=== PATIENT | male | born 1950 | race Caucasian/White ===

== ENCOUNTER 2024-08-16 11:01 | Inpatient (IN) | payer MEDICARE, OTHER, SELFPAY ==
[2024-08-16] VITALS (10 sets, daily range): BP systolic 96–127; BP diastolic 49–69; PULSE 81–107; RESP 16–31; TEMP 36.8–38.2; O2SAT 94–100; BMI 33.5
--- NOTE | 2024-08-16 11:50 | RAD_ITS ---
PROCEDURE: CHEST 1 VIEW (PORTABLE) 08/16/2024 REASON FOR EXAM: FEVER TECHNIQUE: Frontal view of the chest. COMPARISON: None FINDINGS: There is mild cardiomegaly. Central vascularity appears increased. There are increased interstitial markings in the right middle lobe and left lingular segment which may be vascular. There is no pneumothorax. There is no significant effusion. Aortic calcifications are visible. Hardware is partly visible in the cervical spine. There is no visible acute bony abnormality. RAD/Chest 1 View (Portable) IMPRESSION: There is mild cardiomegaly. Central vascularity appears increased. There are increased interstitial markings in the right middle lobe and left martha gular segment which may be vascular. Reading Location: [facility]
--- NOTE | 2024-08-16 11:50 | EKG12_ITS ---
Test Reason : Blood Pressure : */* mmHG Vent. Rate : 107 BPM Atrial Rate : 107 BPM P-R Int : 174 ms QRS Dur : 140 ms QT Int : 366 ms P-R-T Axes : 16 -34 94 degrees QTcB Int : 488 ms Sinus tachycardia Left axis deviation Left bundle branch block Abnormal ECG Confirmed by Mickey Lennon ([id number]), metropolitan editor TRACIE SAENZ ([id number]) on 08/17/2024 6:52:02 AM Referred By: Nikolay Carrasquillo Confirmed By: Mickey Lennon
--- NOTE | 2024-08-16 11:51 | EX.ED.DYSGE1 ---
HPI History of Present Illness Chief Complaint: Weakness Detail of Chief Complaint: Left leg red, swollen and tender with a fever. Informant: patient Onset/Context/Timing Onset: Days Context: Gradual Onset Timing: Continuous Current Severity: Moderate Maximum Severity: Moderate Narrative Narrative: 74-year-old male history of DVT on Coumadin. States has had left lower leg pain, redness and swelling last several days developed a fever. Says he is not feeling well. Denies vomiting. Denies dysuria. Denies cough. He is not diabetic. He has never had cellulitis before that he can remember. Prior similar symptoms: No Recent Illness/Hospitalization: No [facility] Medical History Parkinson disease Hypertension Home Medications ?Medication ?Instructions ?Recorded ?Last Taken ?Type carbidopa 25 mg-levodopa 100 mg 1.5 tab PO .am,noon,dinner,hs 08/16/24 Unknown History tablet carbidopa 25 mg-levodopa 250 mg 1 tab PO .am,noon,dinner,hs 08/16/24 Unknown History tablet cholecalciferol (vitamin D3) 25 25 mcg PO DAILY 08/16/24 Unknown History mcg (1,000 unit) capsule (Vitamin D3) ezetimibe 10 mg tablet (Zetia) 10 mg PO DAILY 08/16/24 Unknown History finasteride 5 mg tablet 5 mg PO DAILY 08/16/24 Unknown History levothyroxine 25 mcg tablet 25 mcg PO DAILY 08/16/24 Unknown History metoprolol succinate 100 mg 100 mg PO DAILY 08/16/24 Unknown History tablet,extended release 24 hr mometasone 0.1 % topical solution topical 08/16/24 Unknown History niacin 500 mg tablet 500 mg PO QHS 08/16/24 Unknown History omeprazole 20 mg capsule,delayed 20 mg PO DAILY 08/16/24 Unknown History release pramipexole 1.5 mg tablet 1.5 mg PO TID 08/16/24 Unknown History rosuvastatin 10 mg tablet 10 mg PO QHS 08/16/24 Unknown History warfarin 5 mg tablet 10 mg PO .MOWEFRSU 08/16/24 Unknown History Allergy/AdvReac Type Severity Reaction Status Date / Time No Known Allergies Allergy Verified 08/16/24 11:02 Social History Smoking Status: Never smoker ROS ROS ED ROS Narrative Fever. Left lower leg redness and pain. Constitutional Constitutional ED: Reports fever(s) Eyes Eyes: Denies blurry vision ENT ENT ED: Denies ear pain Cardiovascular Cardiovascular: Denies chest pain Respiratory/Chest Respiratory/Chest: Denies cough Gastrointestinal Gastrointestinal: Denies abdominal pain, diarrhea, nausea or vomiting Genitourinary Genitourinary ED: Denies dysuria or hematuria Musculoskeletal Musculoskeletal: Denies arthralgias Integumentary Denies abscess Neurologic Neurologic: Reports weakness; Denies paresthesias Psychiatric Psychiatric: Denies anxiety Endocrine Endocrinology: Denies cold intolerance Hematologic/Lymphatic Hematologic/Lymphatic: Reports none Allergic/Immunologic Allergic/Immunologic ED: Denies mouth swelling, tongue swelling or urticaria EXAM Physical Exam Narrative Exam Narrative: 74-year-old male sitting upright in bed. Vital signs are stable he is tachycardic 170 is a temperature of 100.7. He does not look septic or toxic. Pulse ox 96% on room air no signs hypoxia. H EENT exam pupils round reactive light. Moist extremities. Neck nontender no JVD. Lungs clear to auscultation bilaterally. Heart tachycardia 105 no murmur. Chest wall ribs nontender. Abdomen soft nontender. Moving all 4 extremities. Normal pipe bowls paint trimmer strength. Normal dorsi plantarflexion. Midportion of his left calf and anterior lawler there is a band of redness consistent with cellulitis. It is warm to the touch and tender. There is no lymphangitic streaking. There is no inguinal lymphadenopathy. Neurologically he is awake alert. Answering questions following commands. Const Vital Signs: 08/16/24 11:02 08/16/24 12:06 08/16/24 12:12 Temperature 100.7 F H 100.7 F H Temperature Source Oral Oral Pulse Rate 107 H 97 Respiratory Rate 20 H 31 H Respiratory Effort Normal Non-Labored Blood Pressure 127/65 H 98/58 L Blood Pressure Mean 85 71 Pulse Ox 96 100 Oxygen Delivery Method Room Air Room Air 08/16/24 13:00 08/16/24 13:45 08/16/24 15:00 Temperature 99.8 F H 100.2 F H Temperature Source Oral Oral Pulse Rate 88 89 81 Respiratory Rate 27 H 24 H 16 Respiratory Effort Blood Pressure 96/49 L 109/60 107/58 L Blood Pressure Mean 64 76 74 Pulse Ox 95 94 97 Oxygen Delivery Method Room Air Room Air 08/16/24 15:23 Temperature 98.4 F Temperature Source Pulse Rate 83 Respiratory Rate 20 H Respiratory Effort Blood Pressure 115/57 L Blood Pressure Mean 76 Pulse Ox 99 Oxygen Delivery Method Positive well developed; Negative for cachectic, contractures or unkempt General Appearance ED: well developed; Negative for unkempt, cachectic, contractures, cyanotic, diaphoretic or pallor Nutritional Appearance: Negative for cachectic HEENT Reports moist mucous membranes Negative for trauma or tenderness Eyes PERRL and EOMs intact bilaterally Neck no lymphadenopathy, supple and no JVD Chest Wall inspection of chest normal and palpation of chest normal Resp normal respiratory effort and clear to auscultation bilaterally Cardio regular rhythm, S1 normal heart sound, S2 normal heart sound and no murmurs; Negative for regular rate Rate: tachycardic GI normal to inspection, nondistended, normoactive bowel sounds, non-tender, non-distended and no masses Auscultation: normoactive bowel sounds Palpation: soft; Negative for tender, guarding or rebound tenderness present Back/Spine no CVA tenderness General Back: Negative for CVA tenderness Cervical Spine: Negative for cervical spine tenderness Thoracic Spine / Upper Back: Negative for thoracic spinal tenderness or paraspinal muscle tenderness Lumbar Spine / Lower Back: Negative for lumbar spinal tenderness Extremity Negative for normal to inspection Extremity Narrative: Left lower leg mid portion redness band around the leg about 6 inches in width. Goes from the anterior lawler behind the calf. Warm to touch. Consistent with cellulitis. No crepitus. No sloughing of skin. No vesicles. No pustules. There is no lymphangitic streaking. There is no inguinal lymphadenopathy. The left hip, knee and ankle are nontender nonswollen. Do not read. He do not appear to be septic. He can do flexion extension of the left leg. General Extremety ED: Yes edema and tenderness General Extremity: edema Neuro oriented x3 and CN's II-XII intact bilaterally Sensorium / Orientation: alert; Negative for orientation impaired, lethargic or stuporous Motor Exam: strength 5/5 throughout Psych mental status grossly normal Appearance: Negative for unkempt Attitude: No agitated Mood & Affect: Negative for depressed, anxious or tearful Skin No no rashes or lesions noted, no wounds and skin turgor normal Skin Narrative: Left lower extremity cellulitis. Tender and red to the touch. No lymphangitic streaking. No inguinal lymphadenopathy. No joint involvement. General Skin Exam: Negative for jaundice or pallor Lesions: No lesion noted Rashes: No rashes noted Trauma: Negative for abrasion Wounds: Negative for wounds noted MDM MDM MDM Narrative Medical decision making narrative: 74-year-old male left lower extremity cellulitis. Screening labs. I will do a lactic acid plan clinically I do not think he is septic at this time. He will be placed in sepsis protocol due to his tachycardia, fever and site of infection. He will be started on IV Zosyn. He will need to be admitted. Repeat exam patient is doing well around 3:15 PM. I discussed both he and his family. I spoke with the hospitalist about MedSurg admission. Patient and family are comfortable plan. History & Record Review Discussion w/independent historian: Patient Additional record(s) reviewed:: Prior inpatient record, Prior outpatient record, Prior ED visit and Prior labs Lab Data Attestation: I reviewed the patient's lab results. Lab results narrative: CBC shows a white count of 23.5. H&H 14 and 44. Platelets 156. 91% neutrophils. PT/INR of 29 and 2.7. He is on warfarin. BMP shows a sodium of 138. Gap 12. BUN is 16 creatinine 1.2. Glucose 112. Lactic acid is 1.9. Liver enzymes are normal. Urinalysis shows no white or red cells. No bacteria or nitrates. Labs: Laboratory Results - last 24 hr 08/16/24 08/16/24 12:13 12:25 WBC 23.5 H RBC 4.99 Hgb 14.8 Hct 44.6 MCV 89.4 MCH 29.7 MCHC 33.2 RDW Std Deviation 48.0 H RDW Coeff of Jarrett 14.7 H Plt Count 156 MPV 12.3 H Immature Gran % (Auto) 1.100 H Neut % (Auto) 91.1 H Lymph % (Auto) 3.1 L [place] % (Auto) 4.5 Eos % (Auto) 0.0 Baso % (Auto) 0.2 Absolute Neuts (auto) 21.4 H Absolute Lymphs (auto) 0.73 L Nucleated RBC % 0 Platelet Estimate A RBC Morphology NORM C+C Polychromasia 1+ PT 29.5 H INR 2.7 APTT 50.6 H Sodium 138 Potassium 4.2 Chloride 101 Carbon Dioxide 25.4 Anion Gap 12 BUN 16 Creatinine 1.21 H Estim Creat Clear Calc 74.21 Est GFR (MDRD) Non-Af 62 BUN/Creatinine Ratio 13.2 Glucose 112 H Lactic Acid 1.9 Calcium 9.2 Total Bilirubin 0.74 AST 33 ALT 36 Alkaline Phosphatase 74 Total Protein 7.2 Albumin 4.1 Globulin 3.1 Albumin/Globulin Ratio 1.3 Urine Color Yellow Urine Clarity Clear Urine pH 8.0 Ur Specific [place] 1.010 Urine Protein 30 H Urine Glucose (UA) Normal Urine Ketones Negative Urine Occult Blood 50 H Urine Nitrite Negative Urine Bilirubin Negative Urine Urobilinogen Normal Ur Leukocyte Esterase Negative Urine RBC 0-5 SEEN Urine WBC 0-5 SEEN Ur Squamous Epith Cells 0 SEEN Urine Bacteria 0 SEEN Urine Mucus 0 SEEN Radiography Chest X-Ray - ED: Read by ED Physician, Read by Radiologist, Normal, Heart, Lungs, Mediastinum, Bony Structures, No Acute Disease and Chronic Changes Diagnostic Testing: Clinical Impression(s) from Imaging Studies Chest X-Ray 08/16/24 11:50 IMPRESSION: There is mild cardiomegaly. Central vascularity appears increased. There are increased interstitial markings in the right middle lobe and left lingular segment which may be vascular. Reading Location: [facility] Chest x-ray, portable, single view interpreted by myself and the radiologist. She has no acute process. Normal cardiac silhouette. Chronic changes. No pneumonia. No effusions. Rhythm Strip Rhythm Strip: Sinus Tach Rate: 107 Ectopy: None EKG Initial EKG: Attestation: I personally reviewed and interpreted this EKG as follows: Interpretation: No Acute Injury Pattern, Sinus Tachycardia and LBBB Comments: Sinus tachycardia rate of 107. Left bundle branch block. No acute signs of CT or ischemia. Discharge Plan Dx/Rx/DC Orders Clinical Impression: Cellulitis of left leg, Fever, Leukocytosis, Chronic anticoagulation, History of deep vein thrombosis Disposition Disposition: Acute Care [facility]
[2024-08-16] MEDS: 0.9% Normal Saline (1000mL) 1,000 ML 999 ML IV (12:14)
[2024-08-16] MEDS: Ondansetron 4 MG/2 ML Vial IV (12:14)
[2024-08-16] MEDS: Morphine 4 MG/ML Syringe IV (12:15)
[2024-08-16] MEDS: Acetaminophen 500 MG Tablet 1000 MG PO (12:18)
[2024-08-16 12:33] LABS: Bacteria 0 SEEN /hpf (None Seen); Mucous, Urine 0 SEEN /hpf (<or=2+); Squamous Epithelial Cells - UA 0 SEEN /hpf (0-5)
[2024-08-16 12:38] LABS: Absolute Lymphocyte Count 0.73 X10^3/uL (0.83-4.51); Absolute Neutrophil Count 21.4 X10^3/uL (2.0-7.7); Basophil# 0.04 X10^3/uL; Basophil% 0.2 % (0-1); Hematocrit 44.6 % (40-54); Hemoglobin 14.8 g/dL (13.0-16.5); Lymphocyte # 0.73 X10^3/ul (0.83-4.51); Lymphocyte % 3.1 % (19-41); Mean Corp Hgb Conc 33.2 g/dL (32-36); Mean Corpuscular Hgb 29.7 pg (27.0-32.0); Mean Corpuscular Volume 89.4 fL (80-94); Mean Platelet Vol. 12.3 fl (6.2-12.0); Monocyte# 1.06 X10^3/uL; Monocyte% 4.5 % (0-10); NRBC Flagged by Analyzer 0 % (0-5); Neutrophil # 21.38 X10^3/uL (2.7-7.7); Neutrophil % 91.1 % (47-70); POSITIVE DIFFERENTIAL YES; Platelet Count 156 K/mm3 (150-450); RBC Distribution Width CV 14.7 % (11.6-14.6); Red Blood Count 4.99 M/mm3 (4.6-6.2); White Blood Count 23.5 K/mm3 (4.4-11.0)
[2024-08-16 12:39] LABS: Differential Indicated SCAN CRITERIA MET
[2024-08-16 12:46] LABS: Color, Urine Yellow (Yellow); Glucose, Dipstick Normal (Normal); Ketone-Dipstick Negative (Negative); Leukocyte Esterase-Dipstick Negative /ul (Negative); Nitrite-Dipstick Negative (Negative); Occult Blood-Urine 50 /ul (Negative); Protein-Dipstick 30 mg/dl (Negative); Urine Bilirubin Dipstick Negative (Negative); Urine Clarity Clear (Clear); Urine Urobilinogen Normal (Normal)
[2024-08-16 12:49] LABS: International Normalized Ratio 2.7; Partial Thromboplast Time 50.6 Seconds (24.1-36.2); Prothrombin Time (Protime)PT. 29.5 SECONDS (11.7-14.9)
[2024-08-16 12:56] LABS: Red Blood Cells-Urine 0-5 SEEN /hpf (0-5); White Blood Cells 0-5 SEEN /hpf (0-5)
[2024-08-16 12:58] LABS: Lactic Acid 1.9 mmol/L (0.0-2.0)
[2024-08-16 13:07] LABS: ALB/GLOB Ratio 1.3 RATIO (0.9-2.4); AST(SGOT) 33 U/L (<=37); Alanine Aminotransfer ALT/SGPT 36 U/L (<=46); Albumin, Serum 4.1 g/dL (3.4-4.8); Alkaline Phosphatase 74 U/L (40-129); Anion Gap 12 (5-15); BUN 16 mg/dL (4-19); BUN/Creat Ratio 13.2 RATIO (10-20); Calcium,Total 9.2 mg/dL (7.6-11.0); Carbon Dioxide 25.4 mmol/L (21.0-32.0); Chloride 101 mmol/L (98-108); Creatinine, Serum 1.21 mg/dL (0.70-1.20); EST Glomerular Filtration Rate 62 (>60); Estimated Creatinine Clearance 74.21 ml/min (50-250); Globulin 3.1 g/dL (2.2-4.2); Glucose 112 mg/dL (70-99); Potassium 4.2 mmol/L (3.3-5.1); Protein, Total 7.2 g/dL (5.9-8.4); Sodium Level 138 mmol/L (133-145); Total Bilirubin 0.74 mg/dL (0.00-1.30)
[2024-08-16 13:39] LABS: Platelet Estimate A (ADEQ); Polychromasia 1+; Red Cell Morphology NORM C+C NORMAL (NORM C&C)
[2024-08-16] MEDS: Piperacil/Tazobactam 4.5 GM in 0.9% Normal Saline (100mL MB+) 100 ML IV (13:43)
--- NOTE | 2024-08-16 15:08 | HP.PCM.HOS_ITS ---
[facility] - General General Date of Admission: 08/16/24 Date of Service: 08/16/24 Chief Complaint: Worsening left leg pain with swelling HPI Narrative JAMES GRACE, is a 74 M who presented to [facility] ED on 08/16/2024 with worsening left leg pain with swelling. Medical history significant for Parkinson's disease, prior DVT on Coumadin, hypertension, hyperlipidemia and hypothyroidism. Patient lives at home with his and has fairly good functional status at baseline. He noticed left lower extremity swelling with redness and pain starting 4 to 5 days ago. It has progressively worsened over that timeframe so he came in for further evaluation today. No prior history of cellulitis. He does report some fevers and chills and generally states he does not feel well. Has not had much of an appetite. In the ED his left lower extremity was most consistent with cellulitis on exam and he was noted to be febrile to 100.7 F with WBC count 23,000. INR was therapeutic at 2.7 so low concern for DVT. Given these findings, he was started on IV antibiotics and given a 1 L fluid bolus as well as Tylenol for the pain and hospitalist was contacted for admission. I saw the patient at bedside in the ED, and daughter were present. Patient was mildly fatigued appearing but otherwise sitting back comfortably in bed, conversing normally and in no acute distress. He noted that he was feeling mildly improved after the fluid bolus and Tylenol. He currently denied any fevers or chills but generally felt fatigue and malaise. No other acute concerns at this time. [facility], [facility] Medical History Parkinson disease Hypertension Home Medications ?Medication ?Instructions ?Recorded ?Last Taken ?Type ascorbic acid (vitamin C) 1,000 mg 1,000 mg PO DAILY s upplement 08/16/24 Unknown History tablet (Vitamin C) calcium carbonate 1,200 mg PO DAILY Supplement 08/16/24 Unknown History carbidopa 25 mg-levodopa 100 mg 1.5 tab PO .am,noon,di nner,hs 08/16/24 Unknown History tablet carbidopa 25 mg-levodopa 250 mg 1 tab PO .am,noon,dinn er,hs 08/16/24 Unknown History tablet cholecalciferol (vitamin D3) 25 25 mcg PO DAILY Unknown History mcg (1,000 unit) capsule (Vitamin D3) ezetimibe 10 mg tablet (Zetia) 10 mg PO DAILY 08/16/24 Unknown History finasteride 5 mg tablet 5 mg PO DAILY 08/16/24 Unkno wn History levothyroxine 25 mcg tablet 25 mcg PO DAILY 08/16/24 U nknown History metoprolol succinate 100 mg 100 mg PO DAILY 08/16/24 U nknown History tablet,extended release 24 hr niacin 500 mg tablet 500 mg PO QHS 08/16/24 Unkno wn History omeprazole 20 mg capsule,delayed 20 mg PO DAILY Unknown History release pramipexole 1.5 mg tablet 1.5 mg PO TID 08/16/24 Unkno wn History rosuvastatin 10 mg tablet 10 mg PO QHS 08/16/24 Unknow n History warfarin 5 mg tablet 10 mg PO .MOWEFRSU 08/16/24 Unknown History Allergy/AdvReac Type Severity Reaction Status Date / Time No Known Allergies Allergy Verified 08/16/24 11:02 Social History Smoking Status: Never smoker ROS Constitutional Constitutional: Reports chills, fatigue, fever(s) and malaise; Denies weakness Eyes Eyes: Denies change in vision Cardiovascular Cardiovascular: Denies chest pain Respiratory/Chest Respiratory/Chest: Denies shortness of breath at rest Gastrointestinal Gastrointestinal: Denies abdominal pain Musculoskeletal Musculoskeletal: Reports other Details: Leg pain with swelling Neurologic Neurologic: Denies dizziness, focal weakness or headache(s) Vital Signs Vital Signs Vital Signs: 08/16/24 11:02 08/16/24 12:06 08/16/24 12:12 Temperature 100.7 F H 100.7 F H Temperature Source Oral Oral Pulse Rate 107 H 97 Respiratory Rate 20 H 31 H Respiratory Effort Normal Non-Labored Blood Pressure 127/65 H 98/58 L Blood Pressure Mean 85 71 Pulse Ox 96 100 Oxygen Delivery Method Room Air Room Air 08/16/24 13:00 08/16/24 13:45 Temperature 99.8 F H 100.2 F H Temperature Source Oral Oral Pulse Rate 88 89 Respiratory Rate 27 H 24 H Respiratory Effort Blood Pressure 96/49 L 109/60 Blood Pressure Mean 64 76 Pulse Ox 95 94 Oxygen Delivery Method Room Air Room Air Weight Weight: 121.9 kg Body Mass Index (BMI) 33.5 Physical Exam Const alert, oriented x3 and no apparent distress Constitutional Narrative: Elderly male, class I obesity, fatigued appearing but otherwise sitting back comfortably in bed, conversing normally, in no acute distress. General Appearance: cooperative and comfortable HEENT normocephalic, head/scalp atraumatic, hearing grossly normal bilaterally, nasal mucous membranes and turbinates normal and moist oral mucous membranes Eyes PERRL, EOMs intact bilaterally and conjunctivae normal Neck full ROM Chest inspection of chest normal Resp normal respiratory effort, normal air movement, no use of accessory muscles and clear to auscultation bilaterally Cardio regular rate, regular rhythm, no murmurs and peripheral pulses 2+ throughout GI normal to inspection, nondistended, normoactive bowel sounds, soft to palpation, non-tender and non-distended Back/Spine normal ROM Extremity Extremity Narrative: Midportion of left lower leg with redness and band like distribution around leg about 6 inches in width. Warmth and tender to the touch. No crepitus, skin sloughing, vesicles, pustules noted. Neuro moves all extremities and no focal motor deficits Speech: speech normal Motor Exam: strength 5/5 throughout Psych mental status grossly normal Results Lab / Micro Data 08/17/24 05:15 08/17/24 05:15 Labs: Laboratory Results - last 24 hr 08/16/24 12:13: Lactic Acid 1.9 08/16/24 12:25: WBC 23.5 H, RBC 4.99, Hgb 14.8, Hct 44.6, MCV 89.4, MCH 29.7, MCHC 33.2, RDW Std Deviation 48.0 H, RDW Coeff of Jarrett 14.7 H, Plt Count 156, MPV 12.3 H, Immature Gran % (Auto) 1.100 H, Neut % (Auto) 91.1 H, Lymph % (Auto) 3.1 L, [place] % (Auto) 4.5, Eos % (Auto) 0.0, Baso % (Auto) 0.2, Absolute Neuts (auto) 21.4 H, Absolute Lymphs (auto) 0.73 L, Nucleated RBC % 0, Platelet Estimate A, RBC Morphology NORM C+C, Polychromasia 1+, PT 29.5 H, INR 2.7, APTT 50.6 H, Sodium 138, Potassium 4.2, Chloride 101, Carbon Dioxide 25.4, Anion Gap 12, BUN 16, Creatinine 1.21 H, Estim Creat Clear Calc 74.21, Est GFR (MDRD) Non-Af 62, BUN/Creatinine Ratio 13.2, Glucose 112 H, Calcium 9.2, Total Bilirubin 0.74, AST 33, ALT 36, Alkaline Phosphatase 74, Total Protein 7.2, Albumin 4.1, Globulin 3.1, Albumin/Globulin Ratio 1.3, Urine Color Yellow, Urine Clarity Clear, Urine pH 8.0, Ur Specific [place] 1.010, Urine Protein 30 H, Urine Glucose (UA) Normal, Urine Ketones Negative, Urine Occult Blood 50 H, Urine Nitrite Negative, Urine Bilirubin Negative, Urine Urobilinogen Normal, Ur Leukocyte Esterase Negative, Urine RBC 0-5 SEEN, Urine WBC 0-5 SEEN, Ur Squamous Epith Cells 0 SEEN, Urine Bacteria 0 SEEN, Urine Mucus 0 SEEN Rhythm Strip Rhythm Strip: Sinus Tach Rate: 107 Ectopy: None Imaging Radiology Impression Chest X-Ray 08/16/24 11:50 IMPRESSION: There is mild cardiomegaly. Central vascularity appears increased. There are increased interstitial markings in the right middle lobe and left lingular segment which may be vascular. Reading Location: [facility] Assessment & Plan Assessment/Plan (1) Cellulitis of left leg: PLAN: Plan Patient is a 74-year-old male who presented [facility] ED on 08/16/2024 with worsening left lower leg pain with swelling and fevers. 1. Left lower extremity cellulitis ? Admit under inpatient status to [facility]. Presentation consistent with left lower extremity cellulitis given exam findings, fevers and elevated WBC count. Will treat with IV vancomycin and Zosyn for now. Monitor closely. 2. History of DVT on Coumadin ? INR 2.7 on admit, in therapeutic range. Continue home Coumadin. Chronic medical conditions: ? Class I obesity: BMI 33 on admit. Complicates hospital course, care and prognosis. ? Parkinson's disease: Stable. Continue home Sinemet and prophylax all. ? Hypertension: Continue home Toprol. ? Hyperlipidemia: Continue home statin, niacin and Zetia. ? BPH with obstructive symptoms: Continue home finasteride. ? GERD: Continue home PPI. DVT prophylaxis: Not indicated, on Coumadin CODE STATUS: Full code, verified Expected disposition: Home, 2 to 3 days Total clinical time spent by myself addressing the patient's medical issues, reviewing all the data, and collaborating with patient's care team: 55 minutes. Charges/Coding Visit Charges Inpatient E&M: 85090 Init Hosp L2
--- NOTE | 2024-08-16 16:10 | CASEMGMT ---
Care Management Face to Face with patient for initial transition planning/care coordination assessment in the ED.? This consumer loan underwriter introduced self and role at [facility]. Patient alert and oriented. Patient willing to participate in assessment and is able to answer all questions appropriately.? Care providers, pharmacy, and demographics verified. Admitting Diagnosis: Cellulitis Other diagnosis history: ?Parkinson disease, Hypertension PCP: ?Susana Specialists: ?Nikolai Hurt Preferred Pharmacy: ?[facility] Insurance: ?Medicare Prescription Benefit: yes Living Will/HPOA: ?Reports completed, niece is listed as HPOA LNOK: Living Arrangements: ?patient and live in a mobile home, patient reports to being independent with ADLs up until today. Transportation: ?niece drives patient when needed DME: ?walker, wheelchair, CPAP HHC: ?[facility] - recently discharged patient SNF/Rehab: ?none Community Resources: ?[facility] Behavioral Health History: ?none Patient goals: Patient discharge plans uncertain. Patient denies any further needs or concerns at this time. Disposition Plan: admission to acute; RN CM/SW to follow for discharge planning needs that may arise. Ivet Mooney, [employer], SYSTEM ADMINISTRATOR
[2024-08-16] MEDS: Vancomycin HCl 2,000 MG in 0.9% Normal Saline (500mL Bag) 500 ML 250 MG IV (19:37)
[2024-08-16] MEDS: 0.9% Saline Lock 10 ML Syringe IV (19:42)
[2024-08-16] MEDS: 0.9% Normal Saline (250mL Bag) 250 ML 15 ML IV (19:42)
[2024-08-16] MEDS: Pramipexole Di-HCl 1 MG Tablet 1.5 MG PO (22:06)
[2024-08-16] MEDS: Carbidopa/Levodopa 25/100 Tablet PO (22:07)
[2024-08-16] MEDS: Carbidopa/Levodopa 25/250 Tablet PO (22:10)
[2024-08-16] MEDS: Atorvastatin Calcium 20 MG Tablet PO (22:10)
[2024-08-16] MEDS: Acetaminophen 325 MG Tablet 650 MG PO (22:11)
[2024-08-16] MEDS: Piperacil/Tazobactam 3.375 GM in 0.9% Normal Saline (50mL MB+) 50 ML IV (22:12)
[2024-08-16] MEDS: Niacin SA 500 MG Tablet PO (22:18)
[2024-08-17] VITALS (9 sets, daily range): BP systolic 107–115; BP diastolic 55–63; PULSE 70–79; RESP 16–18; TEMP 36.5–37.7; O2SAT 95–100
--- NOTE | 2024-08-17 02:28 | PCM.RX.CS ---
Consult Antibiotic Management Pharmacy has been consulted to manage selected antibiotic: Vancomycin Type of Intervention Type of Consult: New start Labs Labs: Sodium 138 mmol/L (133-145) 08/16/24 12:25 Potassium 4.2 mmol/L (3.3-5.1) 08/16/24 12:25 Chloride 101 mmol/L (98-108) 08/16/24 12:25 Carbon Dioxide 25.4 mmol/L (21.0-32.0) 08/16/24 12:25 Anion Gap 12 (5-15) 08/16/24 12:25 BUN 16 mg/dL (4-19) 08/16/24 12:25 Creatinine 1.21 mg/dL (0.70-1.20) H 08/16/24 12:25 Est GFR (MDRD) Non-Af 62 (>60) 08/16/24 12:25 BUN/Creatinine Ratio 13.2 RATIO (10-20) 08/16/24 12:25 Glucose 112 mg/dL (70-99) H 08/16/24 12:25 Dosing Weight Weight used for dosin.9 kg Estimated Creatinine Clearance Estimated Creatinine Clearance: 74 Goal Trough Goal Trough: 15-20 mcg/mL Pharmacy Plan for Drug Dosing Pharmacy Plan for Drug Dosing: Pharmacy Service will continue to monitor and adjust dosing as required. 2GM IN ER. START 1750MG Q12H AND DRAW TROUGH PRIOR TO 4TH DOSE Follow-Up Labs Follow-Up Labs: Trough: Vancomycin Date/Time Labs Ordered Labs to be done on [date and time ordered]: 08/18 @ 0700
[2024-08-17] MEDS: Acetaminophen 325 MG Tablet 650 MG PO ×2 (06:12→14:14)
[2024-08-17] MEDS: Piperacil/Tazobactam 3.375 GM in 0.9% Normal Saline (50mL MB+) 50 ML IV ×3 (06:12→21:16)
[2024-08-17] MEDS: Levothyroxine 25 MCG TABLET PO (06:14)
[2024-08-17 06:15] LABS: Hematocrit 42.1 % (40-54); Hemoglobin 13.7 g/dL (13.0-16.5); Mean Corp Hgb Conc 32.5 g/dL (32-36); Mean Corpuscular Hgb 29.7 pg (27.0-32.0); Mean Corpuscular Volume 91.3 fL (80-94); Mean Platelet Vol. 12.7 fl (6.2-12.0); Platelet Count 125 K/mm3 (150-450); RBC Distribution Width CV 15.1 % (11.6-14.6); RBC Distribution Width SD 50.1 fl (35.1-43.9); Red Blood Count 4.61 M/mm3 (4.6-6.2); White Blood Count 14.9 K/mm3 (4.4-11.0)
[2024-08-17 06:53] LABS: Anion Gap 11 (5-15); BUN 16 mg/dL (4-19); BUN/Creat Ratio 13.3 RATIO (10-20); Calcium,Total 8.3 mg/dL (7.6-11.0); Carbon Dioxide 24.4 mmol/L (21.0-32.0); Chloride 103 mmol/L (98-108); Creatinine, Serum 1.21 mg/dL (0.70-1.20); EST Glomerular Filtration Rate 62 (>60); Estimated Creatinine Clearance 74.21 ml/min (50-250); Glucose 102 mg/dL (70-99); Potassium 3.9 mmol/L (3.3-5.1); Sodium Level 138 mmol/L (133-145)
[2024-08-17] MEDS: Vancomycin HCl 1,750 MG in 0.9% Normal Saline (500mL Bag) 500 ML 250 MG IV ×2 (08:08→19:28)
[2024-08-17] MEDS: 0.9% Saline Lock 10 ML Syringe IV ×3 (08:14→20:54)
[2024-08-17] MEDS: Metoprolol(XL)Succ 100 MG Tablet PO (08:47)
[2024-08-17] MEDS: Cholecalciferol (VIT D3) 25 MCG TABLET (1,000 UNITS) PO (08:47)
[2024-08-17] MEDS: Carbidopa/Levodopa 25/250 Tablet PO ×4 (08:47→21:09)
[2024-08-17] MEDS: Ascorbic Acid 500 MG Tablet 1000 MG PO (08:47)
[2024-08-17] MEDS: Ezetimibe 10 MG Tablet PO (08:48)
[2024-08-17] MEDS: Finasteride 5 MG Tablet PO (08:48)
[2024-08-17] MEDS: Pramipexole Di-HCl 1 MG Tablet 1.5 MG PO ×3 (08:48→21:09)
[2024-08-17] MEDS: Carbidopa/Levodopa 25/100 Tablet PO ×4 (08:48→21:08)
[2024-08-17] MEDS: Pantoprazole Sodium 20 MG Tablet PO (08:49)
[2024-08-17] MEDS: Menthol/Lanolin/Calamine/Znox 113 GM Tube 1 APPLIC TOPICAL ×2 (08:49→21:10)
--- NOTE | 2024-08-17 08:54 | EX.EMERGENCY ---
EMERGENCY DOCUMENTATION INITIATED: Date: 08/17/24 Time: 7a-7p Day shift
--- NOTE | 2024-08-17 11:11 | PN.HOSP_ITS ---
Reason for Visit Reason for Visit: Diagnoses Cellulitis of left lower limb (08/16/24) Subjective Subjective Saw patient at bedside this morning. Patient was sitting back comfortably in bedside chair and in no acute distress. His left leg looks moderately improved this morning and patient states that he does feel improved today. Has improved energy level and denies any fevers or chills since last night. Denies any left leg pain currently. No other acute concerns at this time. Objective Data Objective Data Vital Signs: Vital Signs Temp Pulse Resp BP Pulse Ox O2 Del Method 98.4 F 79 18 107/58 L 98 Room Air 08/17/24 08:05 08/17/24 08:47 08/17/24 08:05 08/17/24 08:05 08/17/24 08:05 08/17/24 03:42 Oxygen Delivery Method Room Air Weight: 121.9 kg Body Mass Index (BMI) 33.5 Intake & Output: Intake and Output for Last 24 Hours 08/15/24 08/16/24 08/17/24 23:59 23:59 23:59 Intake Total 1640 / 1640 346 / 346 Output Total 400 / 800 850 / 850 Balance 1240 / 840 -504 / -504 Lab / Micro Data 08/17/24 05:15 08/17/24 05:15 Labs: Laboratory Results - last 24 hr 08/16/24 12:13: Lactic Acid 1.9 08/16/24 12:25: WBC 23.5 H, RBC 4.99, Hgb 14.8, Hct 44.6, MCV 89.4, MCH 29.7, MCHC 33.2, RDW Std Deviation 48.0 H, RDW Coeff of Jarrett 14.7 H, Plt Count 156, MPV 12.3 H, Immature Gran % (Auto) 1.100 H, Neut % (Auto) 91.1 H, Lymph % (Auto) 3.1 L, Mccracken % (Auto) 4.5, Eos % (Auto) 0.0, Baso % (Auto) 0.2, Absolute Neuts (auto) 21.4 H, Absolute Lymphs (auto) 0.73 L, Nucleated RBC % 0, Platelet Estimate A, RBC Morphology NORM C+C, Polychromasia 1+, PT 29.5 H, INR 2.7, APTT 50.6 H, Sodium 138, Potassium 4.2, Chloride 101, Carbon Dioxide 25.4, Anion Gap 12, BUN 16, Creatinine 1.21 H, Estim Creat Clear Calc 74.21, Est GFR (MDRD) Non-Af 62, BUN/Creatinine Ratio 13.2, Glucose 112 H, Calcium 9.2, Total Bilirubin 0.74, AST 33, ALT 36, Alkaline Phosphatase 74, Total Protein 7.2, Albumin 4.1, Globulin 3.1, Albumin/Globulin Ratio 1.3, Urine Color Yellow, Urine Clarity Clear, Urine pH 8.0, Ur Specific [place] 1.010, Urine Protein 30 H, Urine Glucose (UA) Normal, Urine Ketones Negative, Urine Occult Blood 50 H, Urine Nitrite Negative, Urine Bilirubin Negative, Urine Urobilinogen Normal, Ur Leukocyte Esterase Negative, Urine RBC 0-5 SEEN, Urine WBC 0-5 SEEN, Ur Squamous Epith Cells 0 SEEN, Urine Bacteria 0 SEEN, Urine Mucus 0 SEEN 08/17/24 05:15: WBC 14.9 H, RBC 4.61, Hgb 13.7, Hct 42.1, MCV 91.3, MCH 29.7, MCHC 32.5, RDW Std Deviation 50.1 H, RDW Coeff of Jarrett 15.1 H, Plt Count 125 L, M PV 12.7 H, Sodium 138, Potassium 3.9, Chloride 103, Carbon Dioxide 24.4, Anion Gap 11, BUN 16, Creatinine 1.21 H, Estim Creat Clear Calc 74.21, Est GFR (MDRD) Non-Af 62, BUN/Creatinine Ratio 13.3, Glucose 102 H, Calcium 8.3 Radiography Diagnostic Testing: Radiology Impression Chest X-Ray 08/16/24 11:50 IMPRESSION: There is mild cardiomegaly. Central vascularity appears increased. There are increased interstitial markings in the right middle lobe and left lingular segment which may be vascular. Reading Location: [facility] Rhythm Strip Rhythm Strip: Sinus Tach Rate: 107 Ectopy: None Physical Exam Const alert, oriented x3 and no apparent distress Constitutional Narrative: Elderly male, class I obesity, mildly fatigued appearing but otherwise sitting back comfortably in bed, conversing normally, in no acute distress. Improving. General Appearance: cooperative and comfortable HEENT normocephalic, head/scalp atraumatic, hearing grossly normal bilaterally, nasal mucous membranes and turbinates normal and moist oral mucous membranes Eyes PERRL, EOMs intact bilaterally and conjunctivae normal Neck full ROM Chest inspection of chest normal Resp normal respiratory effort, normal air movement, no use of accessory muscles and clear to auscultation bilaterally Cardio regular rate, regular rhythm, no murmurs and peripheral pulses 2+ throughout GI normal to inspection, nondistended, normoactive bowel sounds, soft to palpation, non-tender and non-distended Back/Spine normal ROM Extremity Extremity Narrative: Midportion of left leg with moderate improvement in erythema. Remains warm but is less tender to the touch. No crepitus, skin sloughing, vesicles, pustules noted. Neuro moves all extremities and no focal motor deficits Speech: speech normal Motor Exam: strength 5/5 throughout Psych mental status grossly normal Assessment & Plan Assessment/Plan (1) Cellulitis of left leg: PLAN: Plan Patient is a 74-year-old male who presented [facility] ED on 08/16/2024 with worsening left lower leg pain with swelling and fevers. 1. Left lower extremity cellulitis ? Presentation consistent with left lower extremity cellulitis given exam findings, fevers and elevated WBC count. Treating with IV vancomycin and Zosyn and patient with moderate improvement on hospital day 2 with improving WBC count and fevers resolved. Continue IV antibiotics today and if continuing to improve tomorrow, will plan for discharge home on p.o. antibiotics to complete 7-day course total. 2. History of DVT on Coumadin ? INR 2.7 on admit, in therapeutic range. Continue home Coumadin. Chronic medical conditions: ? Class I obesity: BMI 33 on admit. Complicates hospital course, care and prognosis. ? Parkinson's disease: Stable. Continue home Sinemet and pramipexole. ? Hypertension: Continue home Toprol. ? Hyperlipidemia: Continue home statin, niacin and Zetia. ? BPH with obstructive symptoms: Continue home finasteride. ? GERD: Continue home PPI. DVT prophylaxis: Not indicated, on Coumadin CODE STATUS: Full code, verified Expected disposition: Home, 1 to 2 days Total clinical time spent by myself addressing the patient's medical issues, reviewing all the data, and collaborating with patient's care team: 35 minutes. Charges/Coding Visit Charges Inpatient E&M: 92520 Subs Hosp L2
--- NOTE | 2024-08-17 14:06 | CASEMGMT ---
Addendum entered by Sissy Soto 08/17/24 14:46: Pt reports that he is still connected with [facility] and receiving speech therapy. Pt agreeable to adding physical therapy and nursing. ELIJAH updated RNEUNICE. SHANTHI Caro Original Note: Social Work- SW met with pt to complete SDOH assessment. Pt reports no concerns at this time, but would like resources for a ramp into the home and bathroom modifications for a walk-in shower. Pt reports that he has fallen several times, as his legs just lock up and stop working due to Parkinsons. Pt reports that he has 4-5 steps into his mobile home, but does have handrails. SW discussed getting a bench shower chair to assist pt in bathroom until a walk-in shower can be completed. Pt reports that he has [facility] and receives mom's meals home delivered meals. Pt reports that he reached out to [facility], but would need to pay and does not have the ability to do so. Pt would be interested in CCN or assistance in home, as was recently diagnosed with early stage Alzheimer disease. Pt is realistic in acknowledging that both he and have progressive diseases and reporting that he would like to have a team in place before that time. SW provided information [facility], [facility], hand rail and ramp information, as well as support group information. ELIJAH collaborated with RNEUNICE to discuss approriateness for [facility]. Pt reports that Lauryn, niece, is POA. Pt encouraged to bring in documentation for scan into chart. SHANTHI Caro
[2024-08-17] MEDS: oxyCODONE 5 MG Tablet PO (14:14)
--- NOTE | 2024-08-17 14:28 | PCM.RX.CS ---
Consult Antibiotic Management Pharmacy has been consulted to manage selected antibiotic: Vancomycin Type of Intervention Type of Consult: Follow-up Suspected Infection Suspected Infection: Skin/Soft tissue Prior Doses of Antibiotics Prior Doses of Antibiotics Received/Current Regimen: 08/16/24 @ 1937 VAncomycin 2000mg x1 08/17/24 @ 0808 Vancomycin 1750mg Labs Labs: Sodium 138 mmol/L (133-145) 08/17/24 05:15 Potassium 3.9 mmol/L (3.3-5.1) 08/17/24 05:15 Chloride 103 mmol/L (98-108) 08/17/24 05:15 Carbon Dioxide 24.4 mmol/L (21.0-32.0) 08/17/24 05:15 Anion Gap 11 (5-15) 08/17/24 05:15 BUN 16 mg/dL (4-19) 08/17/24 05:15 Creatinine 1.21 mg/dL (0.70-1.20) H 08/17/24 05:15 Est GFR (MDRD) Non-Af 62 (>60) 08/17/24 05:15 BUN/Creatinine Ratio 13.3 RATIO (10-20) 08/17/24 05:15 Glucose 102 mg/dL (70-99) H 08/17/24 05:15 Dosing Weight Weight used for dosin kg Estimated Creatinine Clearance Estimated Creatinine Clearance: 74 Goal Trough Goal Trough: 15-20 mcg/mL Pharmacy Plan for Drug Dosing Pharmacy Plan for Drug Dosin of VAncomycin every 12 hours Pharmacy Service will continue to monitor and adjust dosing as required. Follow-Up Labs Follow-Up Labs: Trough: Vancomycin Date/Time Labs Ordered Labs to be done on [date and time ordered]: 08/18/24 @ 0700
--- NOTE | 2024-08-17 14:33 | CHAPLAIN ---
Type of Pastoral Visit _x__ Initial Visit ___ Follow-up Visit ___ On-call Visit ___ General Patient Visit ___ Spiritual Assessment ___ Family Conference ___ Bereavement ___ Rapid Response ___ Code Blue ___ Other (describe below) Pastoral Care Referral From _x__ Patient ___ Family ___ Nurse ___ Physician ___ Financial Consultant ___ Automation Tech ___ Other (describe below) Sacrament/Intervention _x__ Active listening ___ Anointing ___ Mandaen ___ Bereavement ___ Communion _x__ Yumiko exploration ___ _x__ Life review _x__ Prayer ___ Reconciliation ___ Sacrament of Sick _x__ Supportive presence ___ Wedding ___ Other (describe below) Pastoral Comments patient is able to give information about his health and how he is coping with it all; pt reveals that he has been dealing with Parkinson's for six years and has learned to live one day at a time and one step at a time; pt says that he would appreciate time for conversation and then a prayer; pt gives some life review, work experiences, and the of his father last week; pt accepts that he has to be in the hospital to gain improvements; pt is not connected to a yumiko community but welcomes presence and prayer; pt then asks for a visit tomorrow again if possible;
--- NOTE | 2024-08-17 14:49 | CASEMGMT ---
Addendum entered by Stacey Rich 08/17/24 15:58: JOHAN DAWSON into pt room, pt aware that [facility] will add PT and SN to his current services. Pt denies any further homegoing needs at this time. Addendum entered by Stacey Rich 08/17/24 15:19: Received confirmation from [facility] that pt is active with PT and ST. Added SN, sent H&P and order via [employer]. Original Note: notified JOHAN DAWSON that pt is active with ST services through [facility] and pt is interested in therapy and a nurse as well. Message sent to [facility] via [employer] to confirm.
[2024-08-17] MEDS: Niacin SA 500 MG Tablet PO (21:09)
[2024-08-17] MEDS: Atorvastatin Calcium 20 MG Tablet PO (21:10)
[2024-08-18] VITALS (10 sets, daily range): BP systolic 105–121; BP diastolic 53–82; PULSE 66–82; RESP 16–20; TEMP 36.1–36.6; O2SAT 96–100
--- NOTE | 2024-08-18 05:39 | CPS ---
[0507] Pt. wears BiPAP at home. He's not sure what his settings are, but I set him up with 20/10 with our sleep lab machine. Pt. says it feels very similar to what he wears at home.
[2024-08-18] MEDS: Piperacil/Tazobactam 3.375 GM in 0.9% Normal Saline (50mL MB+) 50 ML IV ×3 (06:36→21:01)
[2024-08-18] MEDS: Levothyroxine 25 MCG TABLET PO (06:36)
[2024-08-18 07:10] LABS: Hematocrit 37.4 % (40-54); Hemoglobin 12.5 g/dL (13.0-16.5); Mean Corp Hgb Conc 33.4 g/dL (32-36); Mean Corpuscular Volume 89.7 fL (80-94); Mean Platelet Vol. 12.5 fl (6.2-12.0); Platelet Count 117 K/mm3 (150-450); RBC Distribution Width CV 14.8 % (11.6-14.6); RBC Distribution Width SD 48.2 fl (35.1-43.9); Red Blood Count 4.17 M/mm3 (4.6-6.2); White Blood Count 9.5 K/mm3 (4.4-11.0)
[2024-08-18 07:56] LABS: International Normalized Ratio 1.9; Prothrombin Time (Protime)PT. 22.4 SECONDS (11.7-14.9)
[2024-08-18 08:17] LABS: Anion Gap 9 (5-15); BUN 14 mg/dL (4-19); BUN/Creat Ratio 14.3 RATIO (10-20); Calcium,Total 8.2 mg/dL (7.6-11.0); Carbon Dioxide 22.3 mmol/L (21.0-32.0); Chloride 104 mmol/L (98-108); Creatinine, Serum 0.95 mg/dL (0.70-1.20); EST Glomerular Filtration Rate 83 (>60); Estimated Creatinine Clearance 94.52 ml/min (50-250); Glucose 105 mg/dL (70-99); Potassium 3.7 mmol/L (3.3-5.1); Sodium Level 136 mmol/L (133-145); Vancomycin, Trough Level 14.9 ug/mL (5.0-15.0)
--- NOTE | 2024-08-18 08:44 | PCM.RX.CS ---
Consult Antibiotic Management Pharmacy has been consulted to manage selected antibiotic: Vancomycin Type of Intervention Type of Consult: Follow-up Suspected Infection Suspected Infection: Skin/Soft tissue Prior Doses of Antibiotics Prior Doses of Antibiotics Received/Current Regimen: Vancomycin 1750 mg Q12H, last dose given 08/17/24 @ 1928 Labs Labs: Sodium 136 mmol/L (133-145) 08/18/24 06:52 Potassium 3.7 mmol/L (3.3-5.1) 08/18/24 06:52 Chloride 104 mmol/L (98-108) 08/18/24 06:52 Carbon Dioxide 22.3 mmol/L (21.0-32.0) 08/18/24 06:52 Anion Gap 9 (5-15) 08/18/24 06:52 BUN 14 mg/dL (4-19) 08/18/24 06:52 Creatinine 0.95 mg/dL (0.70-1.20) 08/18/24 06:52 Est GFR (MDRD) Non-Af 83 (>60) 08/18/24 06:52 BUN/Creatinine Ratio 14.3 RATIO (10-20) 08/18/24 06:52 Glucose 105 mg/dL (70-99) H 08/18/24 06:52 Vancomycin Trough 14.9 ug/mL (5.0-15.0) 08/18/24 06:52 Dosing Weight Weight used for dosin kg Estimated Creatinine Clearance Estimated Creatinine Clearance: ~ 95 Goal Trough Goal Trough: 15-20 mcg/mL Pharmacy Plan for Drug Dosing Pharmacy Plan for Drug Dosing: Vancomycin trough = 14.9, continue current dosing, trough in 2 days Pharmacy Service will continue to monitor and adjust dosing as required. Follow-Up Labs Follow-Up Labs: Trough: Vancomycin Date/Time Labs Ordered Labs to be done on [date and time ordered]: 08/20/24 @ 0700
[2024-08-18] MEDS: Pramipexole Di-HCl 1 MG Tablet 1.5 MG PO ×3 (09:04→20:51)
[2024-08-18] MEDS: Carbidopa/Levodopa 25/100 Tablet PO ×4 (09:05→20:48)
[2024-08-18] MEDS: Carbidopa/Levodopa 25/250 Tablet PO ×4 (09:05→20:50)
[2024-08-18] MEDS: Finasteride 5 MG Tablet PO (09:06)
[2024-08-18] MEDS: Cholecalciferol (VIT D3) 25 MCG TABLET (1,000 UNITS) PO (09:06)
[2024-08-18] MEDS: Menthol/Lanolin/Calamine/Znox 113 GM Tube 1 APPLIC TOPICAL ×2 (09:06→20:50)
[2024-08-18] MEDS: Ezetimibe 10 MG Tablet PO (09:06)
[2024-08-18] MEDS: Pantoprazole Sodium 20 MG Tablet PO (09:06)
[2024-08-18] MEDS: Ascorbic Acid 500 MG Tablet 1000 MG PO (09:06)
[2024-08-18] MEDS: Vancomycin HCl 1,750 MG in 0.9% Normal Saline (500mL Bag) 500 ML 250 MG IV ×2 (09:23→19:16)
--- NOTE | 2024-08-18 10:12 | PCM.PN.HOSP ---
Reason for Visit Reason for Visit: Diagnoses Cellulitis of left lower limb (08/16/24) Subjective Subjective Saw patient at bedside this morning. Patient was sitting back in bedside chair and appeared similar yesterday. Did note that his left leg continues to have pain and burning and on exam the redness on the lower leg appears about the same as yesterday without much improvement. He is hesitant to go home until more improvement is seen and he knows that it will not worsen. No other new concerns today. Objective Data Objective Data Vital Signs: Vital Signs Temp Pulse Resp BP Pulse Ox O2 Del Method 97.5 F L 76 18 105/53 L 96 Room Air 08/18/24 07:49 08/18/24 07:49 08/18/24 07:49 08/18/24 07:49 08/18/24 07:49 08/18/24 08:32 Oxygen Delivery Method Room Air Weight: 121.9 kg Body Mass Index (BMI) 33.5 Intake & Output: Intake and Output for Last 24 Hours 08/16/24 08/17/24 08/18/24 23:59 23:59 23:59 Intake Total 1640 / 1640 2385.5 / 2385.5 50 / 50 Output Total 400 / 800 0 / 0 Balance 1240 / 840 335.5 / 335.5 50 / 50 Lab / Micro Data 08/18/24 06:52 08/18/24 06:52 Labs: Laboratory Results - last 24 hr 08/18/24 06:52: WBC 9.5, RBC 4.17 L, Hgb 12.5 L, Hct 37.4 L, MCV 89.7, MCH 30.0, MCHC 33.4, RDW Std Deviation 48.2 H, RDW Coeff of Jarrett 14.8 H, Plt Count 117 L, MPV 12.5 H, PT 22.4 H, INR 1.9, Sodium 136, Potassium 3.7, Chloride 104, Carbon Dioxide 22.3, Anion Gap 9, BUN 14, Creatinine 0.95, Estim Creat Clear Calc 94.52, Est GFR (MDRD) Non-Af 83, BUN/Creatinine Ratio 14.3, Glucose 105 H, Calcium 8.2, Vancomycin Trough 14.9 Micro: Microbiology 08/16/24 12:25 Urine, Catheterized Urine Culture - Final Culture exhibits no growth. Rhythm Strip Rhythm Strip: Sinus Tach Rate: 107 Ectopy: None Physical Exam Const alert, oriented x3 and no apparent distress Constitutional Narrative: Elderly male, class I obesity, mildly fatigued appearing but otherwise sitting back comfortably in bed, conversing normally, in no acute distress. Stable. General Appearance: cooperative and comfortable HEENT normocephalic, head/scalp atraumatic, hearing grossly normal bilaterally, nasal mucous membranes and turbinates normal and moist oral mucous membranes Eyes PERRL, EOMs intact bilaterally and conjunctivae normal Neck full ROM Chest inspection of chest normal Resp normal respiratory effort, normal air movement, no use of accessory muscles and clear to auscultation bilaterally Cardio regular rate, regular rhythm, no murmurs and peripheral pulses 2+ throughout GI normal to inspection, nondistended, normoactive bowel sounds, soft to palpation, non-tender and non-distended Back/Spine normal ROM Extremity Extremity Narrative: Midportion of left leg with moderate improvement in erythema from admission. Remains warm but is less tender to the touch. No crepitus, skin sloughing, vesicles, pustules noted. Neuro moves all extremities and no focal motor deficits Speech: speech normal Motor Exam: strength 5/5 throughout Psych mental status grossly normal Assessment & Plan Assessment/Plan (1) Cellulitis of left leg: PLAN: Plan Patient is a 74-year-old male who presented [facility] ED on 08/16/2024 with worsening left lower leg pain with swelling and fevers. 1. Left lower extremity cellulitis ? Presentation consistent with left lower extremity cellulitis given exam findings, fevers and elevated WBC count. Does have small wounds noted on the legs but notably with no drainage noted. Has had good improvement on IV vancomycin and Zosyn as WBC count and fevers have resolved. However, leg does remain erythematous and somewhat tender to the touch. Wound care consulted for further recommendations. Hopeful that patient will be ready for discharge home tomorrow with home health care with plan to complete p.o. antibiotics for 7-day course total. 2. History of DVT on Coumadin ? INR 2.7 on admit, in therapeutic range. Continue home Coumadin. 3. Chronic debility with dysphagia in setting of Parkinson's disease ? PT/OT/speech therapy/case management following. Patient has therapy services with home health care currently. Given his left lower extremity wound, requested home health services for wound care and therapy as well and we will plan for this on discharge. Per speech therapy, patient has very good insight into proper diet for him given his swallowing issues with Parkinson's disease; continue easy to chew solids with regular thin liquids. Continue home Sinemet and pramipexole. Chronic medical conditions: ? Class I obesity: BMI 33 on admit. Complicates hospital course, care and prognosis. ? Hypertension: Continue home Toprol. ? Hyperlipidemia: Continue home statin, niacin and Zetia. ? BPH with obstructive symptoms: Continue home finasteride. ? GERD: Continue home PPI. DVT prophylaxis: Not indicated, on Coumadin CODE STATUS: Full code, verified Expected disposition: Home with [facility], 1 to 2 days Total clinical time spent by myself addressing the patient's medical issues, reviewing all the data, and collaborating with patient's care team: 35 minutes. Charges/Coding Visit Charges Inpatient E&M: 45778 Subs Hosp L2
--- NOTE | 2024-08-18 10:57 | CASEMGMT ---
Updated [facility] that plan is for pt to dc tomorrow. Green sheet on chart for C.
--- NOTE | 2024-08-18 13:46 | WOUNDNOTE ---
Was consulted on patient for redness to the left lower leg. there is moderate edema noted to the left lower leg. the redness appears to have improved according to the skin markings. gently washed the lower leg and foot with soap and water. pat dry. placed dry dressings and wrapped with kerlix. applied LA wraps from the base of the toes to just below the knees. pt tolerated well. see wound photos.
--- NOTE | 2024-08-18 15:25 | WOUNDNOTE ---
wound photo: left lower leg
[2024-08-18] MEDS: Atorvastatin Calcium 20 MG Tablet PO (20:51)
[2024-08-18] MEDS: Niacin SA 500 MG Tablet PO (20:52)
[2024-08-19 01:25] VITALS: PULSE 72; RESP 20; O2SAT 99
[2024-08-19 02:05] VITALS: BP 122/66; PULSE 79; RESP 16; TEMP 36.6; O2SAT 98
[2024-08-19] MEDS: Piperacil/Tazobactam 3.375 GM in 0.9% Normal Saline (50mL MB+) 50 ML IV (05:28)
[2024-08-19] MEDS: Levothyroxine 25 MCG TABLET PO (05:30)
[2024-08-19] MEDS: 0.9% Normal Saline (250mL Bag) 250 ML 15 ML IV (05:34)
[2024-08-19 06:46] LABS: Hematocrit 37.8 % (40-54); Hemoglobin 12.4 g/dL (13.0-16.5); Mean Corp Hgb Conc 32.8 g/dL (32-36); Mean Corpuscular Hgb 29.5 pg (27.0-32.0); Mean Corpuscular Volume 89.8 fL (80-94); Mean Platelet Vol. 12.6 fl (6.2-12.0); Platelet Count 123 K/mm3 (150-450); RBC Distribution Width CV 14.7 % (11.6-14.6); RBC Distribution Width SD 48.5 fl (35.1-43.9); Red Blood Count 4.21 M/mm3 (4.6-6.2); White Blood Count 8.2 K/mm3 (4.4-11.0)
[2024-08-19 06:47] LABS: Prothrombin Time (Protime)PT. 23.4 SECONDS (11.7-14.9)
[2024-08-19 07:04] LABS: Anion Gap 11 (5-15); BUN 10 mg/dL (4-19); BUN/Creat Ratio 11.4 RATIO (10-20); Calcium,Total 8.4 mg/dL (7.6-11.0); Carbon Dioxide 22.3 mmol/L (21.0-32.0); Chloride 105 mmol/L (98-108); Creatinine, Serum 0.84 mg/dL (0.70-1.20); EST Glomerular Filtration Rate 91 (>60); Estimated Creatinine Clearance 106.89 ml/min (50-250); Glucose 98 mg/dL (70-99); Potassium 3.6 mmol/L (3.3-5.1); Sodium Level 138 mmol/L (133-145)
[2024-08-19] MEDS: Vancomycin HCl 1,750 MG in 0.9% Normal Saline (500mL Bag) 500 ML 175 MG IV (07:37)
[2024-08-19 09:00] VITALS: BP 135/90; PULSE 80; PULSE 89; RESP 20; TEMP 36.8; O2SAT 92
[2024-08-19] MEDS: Carbidopa/Levodopa 25/250 Tablet PO ×2 (09:13→12:51)
[2024-08-19] MEDS: Ascorbic Acid 500 MG Tablet 1000 MG PO (09:14)
[2024-08-19] MEDS: Pantoprazole Sodium 20 MG Tablet PO (09:14)
[2024-08-19] MEDS: Pramipexole Di-HCl 1 MG Tablet 1.5 MG PO ×2 (09:14→14:59)
[2024-08-19 09:15] VITALS: PULSE 80
[2024-08-19] MEDS: Metoprolol(XL)Succ 100 MG Tablet PO (09:15)
[2024-08-19] MEDS: Carbidopa/Levodopa 25/100 Tablet PO ×2 (09:16→12:52)
[2024-08-19] MEDS: Ezetimibe 10 MG Tablet PO (09:16)
[2024-08-19] MEDS: Finasteride 5 MG Tablet PO (09:18)
[2024-08-19] MEDS: Cholecalciferol (VIT D3) 25 MCG TABLET (1,000 UNITS) PO (09:19)
--- NOTE | 2024-08-19 09:37 | DS.PCM_ITS ---
Providers Date of Admission: 08/16/24 Date of Discharge: 08/19/24 Primary Care Physician: Dr. Edi Meza, Consultations 08/18/24 10:12 Consult: Onc/Wound/teletype telegrapher Routine Comment: Reason for Consult:: left leg wound w/ cellulitis Reason For Visit: LEFT LEG CELLULITIS Diagnosis Discharge Diagnosis (1) Cellulitis of left leg: Status: Acute Code(s): L03.116 - Cellulitis of left lower limb Medications at Discharge Home Medications ascorbic acid (vitamin C) 1,000 mg tablet (Vitamin C) 1,000 mg PO DAILY supplement 08/16/24 calcium carbonate 1,200 mg PO DAILY Supplement 08/16/24 carbidopa 25 mg-levodopa 100 mg tablet 1.5 tab PO .am,noon,dinner,hs 08/16/24 carbidopa 25 mg-levodopa 250 mg tablet 1 tab PO .am,noon,dinner,hs 08/16/24 cholecalciferol (vitamin D3) 25 mcg (1,000 unit) capsule (Vitamin D3) 25 mcg PO DAILY 08/16/24 ezetimibe 10 mg tablet (Zetia) 10 mg PO DAILY 08/16/24 finasteride 5 mg tablet 5 mg PO DAILY 08/16/24 levothyroxine 25 mcg tablet 25 mcg PO DAILY 08/16/24 metoprolol succinate 100 mg tablet,extended release 24 hr 100 mg PO DAILY 08/16/24 niacin 500 mg tablet 500 mg PO QHS 08/16/24 omeprazole 20 mg capsule,delayed release 20 mg PO DAILY 08/16/24 pramipexole 1.5 mg tablet 1.5 mg PO TID 08/16/24 rosuvastatin 10 mg tablet 10 mg PO QHS 08/16/24 warfarin 5 mg tablet 10 mg PO .MOWEFRSU 08/16/24 doxycycline hyclate 100 mg tablet 100 mg PO BID 4 days #8 tabs 08/19/24 Hospital Course Operations None Procedures EKG and - (Chest x-ray) Summary of Care Provided Minutes Spent on Discharge: 35 Hospital Course: Patient is a 74-year-old male who presented [facility] ED on 08/16/2024 with worsening left lower leg pain with swelling and fevers. Hospital course as noted below. Patient discharged home with home health care in stable condition on 08/19. 1. Left lower extremity cellulitis ? Wound care followed. Presentation consistent with left lower extremity cellulitis given exam findings, fevers and elevated WBC count. Did have small wounds noted on the legs but notably with no drainage noted. Treated with IV vancomycin and Zosyn while inpatient with resolution of WBC count and fevers. Per wound care, no concerning wounds noted, okay for simple compression for lower extremity swelling at baseline. Stable for discharge on 08/19 and will send on 4 more days of doxycycline to complete 7-day course of antibiotics total. 2. History of DVT on Coumadin ? INR 2.7 on admit, in therapeutic range. Continue home Coumadin. 3. Chronic debility with dysphagia in setting of Parkinson's disease ? PT/OT/speech therapy/case management followed. Patient has therapy services with home health care currently. Given his left lower extremity wound, requested home health services for wound care and therapy as well. Per speech therapy, patient has very good insight into proper diet for him given his swallowing issues with Parkinson's disease; continue easy to chew solids with regular thin liquids. Continue home Sinemet and pramipexole. Discharged home with home health care in stable condition on 08/19. Chronic medical conditions: ? Class I obesity: BMI 33 on admit. Complicated hospital course, care and prognosis. ? Hypertension: Continue home Toprol. ? Hyperlipidemia: Continue home statin, niacin and Zetia. ? BPH with obstructive symptoms: Continue home finasteride. ? GERD: Continue home PPI. Total clinical time spent by myself addressing the patient's medical issues, reviewing all the data, and collaborating with patient's care team: 35 minutes. Physical Exam Const alert, oriented x3 and no apparent distress Constitutional Narrative: Elderly male, class I obesity, mildly fatigued appearing but otherwise sitting back comfortably in bed, conversing normally, in no acute distress. Stable. General Appearance: cooperative and comfortable HEENT normocephalic, head/scalp atraumatic, hearing grossly normal bilaterally, nasal mucous membranes and turbinates normal and moist oral mucous membranes Eyes PERRL, EOMs intact bilaterally and conjunctivae normal Neck full ROM Chest inspection of chest normal Resp normal respiratory effort, normal air movement, no use of accessory muscles and clear to auscultation bilaterally Cardio regular rate, regular rhythm, no murmurs and peripheral pulses 2+ throughout GI normal to inspection, nondistended, normoactive bowel sounds, soft to palpation, non-tender and non-distended Back/Spine normal ROM Extremity Extremity Narrative: Midportion of left leg with moderate improvement in erythema from admission. No crepitus, skin sloughing, vesicles, pustules noted. Neuro moves all extremities and no focal motor deficits Speech: speech normal Motor Exam: strength 5/5 throughout Psych mental status grossly normal Weight / BMI Weight Weight: 121.9 kg Body Mass Index (BMI) 33.5 ABG / Lab / Microbiology Data 08/19/24 05:25 08/19/24 05:25 Laboratory: Laboratory Results - last 24 hr 08/19/24 05:25: WBC 8.2, RBC 4.21 L, Hgb 12.4 L, Hct 37.8 L, MCV 89.8, MCH 29.5, MCHC 32.8, RDW Std Deviation 48.5 H, RDW Coeff of Jarrett 14.7 H, Plt Count 123 L, M PV 12.6 H, PT 23.4 H, INR 2.0, Sodium 138, Potassium 3.6, Chloride 105, Carbon Dioxide 22.3, Anion Gap 11, BUN 10, Creatinine 0.84, Estim Creat Clear Calc 106.89, Est GFR (MDRD) Non-Af 91, BUN/Creatinine Ratio 11.4, Glucose 98, Calcium 8.4 Microbiology: Microbiology 08/16/24 12:25 Blood Culture (Wb) - Anticubital Right Blood Culture - Preliminary No growth in 48 hours. 08/16/24 12:06 Blood Culture (Wb) - Anticubital Right Blood Culture - Preliminary No growth in 48 hours. 08/16/24 12:25 Urine, Catheterized Urine Culture - Final Culture exhibits no growth. D/C Instructions DC O2, CPAP, BIPAP Needs Home O2 Discharge instructions: No Meaningful Use Info Meaningful Use Meaningful Use Diagnoses (Choose all that apply): None applicable Ischemic Stroke Statin Dosing Therapy Reference: STATIN DOSE THERAPY REFERENCE: * Patients > 75 years receive moderate or high dose statin therapy. * Patients 75 years or YOUNGER should receive HIGH intensity statin dose unless contraindicated. You will be required to document reason for non-treatment if statin daily dose does not meet guidelines. HIGH DOSE STATIN THERAPY DAILY Atorvastatin > than or = to 40 mg Rosuvastatin > than or = to 20 mg Amlodipine + Atorvastatin > than or = to 2.5/40 mg Ezetimibe + Simvastatin 10/80 mg Simvastatin 80mg Discharge Plan Admission Admit Date/Time: 08/16/24 15:25 Primary Reason for Your Visit: left leg cellulitis Attending Provider: Caesar Patel Primary Care Provider: Edi Meza Discharge Orders/Prescriptions Prescriptions: New doxycycline hyclate 100 mg tablet 100 mg PO BID 4 Days Qty: 8 0RF Continued carbidopa-levodopa 25-100 mg tablet 1.5 tab PO .am,noon,dinner,hs Patient Comments: takes at 0900, 1300, 1700,2100 carbidopa-levodopa 25-250 mg tablet 1 tab PO .am,noon,dinner,hs Rx Instructions: takes 0900,1300,1700,2100 cholecalciferol (vitamin D3) [Vitamin D3] 25 mcg (1,000 unit) capsule 25 mcg PO DAILY ezetimibe [Zetia] 10 mg tablet 10 mg PO DAILY metoprolol succinate 100 mg tablet extended release 24 hr 100 mg PO DAILY levothyroxine 25 mcg tablet 25 mcg PO DAILY niacin 500 mg tablet 500 mg PO QHS omeprazole 20 mg capsule,delayed release(DR/EC) 20 mg PO DAILY pramipexole 1.5 mg tablet 1.5 mg PO TID Rx Instructions: 0900,1500,2100 finasteride 5 mg tablet 5 mg PO DAILY warfarin 5 mg tablet 10 mg PO .MOWEFRSU Rx Instructions: takes 10MG at 1700 MON,WED,FRI,SUN TAKES 7.5MG AT 1700 TUES,THURS, SAT rosuvastatin 10 mg tablet 10 mg PO QHS ascorbic acid (vitamin C) [Vitamin C] 1,000 mg tablet 1,000 mg PO DAILY calcium carbonate 600 mg calcium (1,500 mg) tablet 1,200 mg PO DAILY Referrals / Follow Up: Edi Meza DO [Primary Care Provider] - Disposition Disposition (needs filled in before D/C Order can be placed): Home Health Service Charges/Coding Visit Charges Inpatient E&M: 31877 Disch Hosp >30min
[2024-08-19] MEDS: Menthol/Lanolin/Calamine/Znox 113 GM Tube 1 APPLIC TOPICAL (12:50)
--- NOTE | 2024-08-19 14:15 | NURSING ---
Byrd removed at this time.
[2024-08-19 14:53] VITALS: BP 126/75; PULSE 80; RESP 20; TEMP 36.4; O2SAT 100
== END 2024-08-19 15:31 | disposition home health service (06) | DRG 603 ==
LOC: ED 16:13 → MS3 16:48
PROVIDERS: Admitting Provider Hospitalist; Emergency Provider Emergency Medicine; PCP Family Medicine; Referring Provider Emergency Medicine; Visit Provider Hospitalist
DX: L03.116 Cellulitis of left lower limb (principal); N13.8 Other obstructive and reflux uropathy; G20.A1 Parkinson's disease without dyskinesia, without mention of fluctuations; I10 Essential (primary) hypertension; E66.811 Obesity, class 1; E78.5 Hyperlipidemia, unspecified; K21.9 Gastro-esophageal reflux disease without esophagitis; N40.1 Benign prostatic hyperplasia with lower urinary tract symptoms; Z68.33 Body mass index [BMI] 33.0-33.9, adult; Z79.01 Long term (current) use of anticoagulants; Z79.899 Other long term (current) drug therapy; Z86.718 Personal history of other venous thrombosis and embolism
CPT/HCPCS: 36415; 51702; 71045; 80048; 80053; 80202; 81001; 83605; 85025; 85027; 85610; 85730; 87040; 87086; 92610; 93005; 94002; 94003; 94668; 97162; 97166; 97530; 97802; 99285; A4216; J2405